=== PATIENT | female | born 1950 | race Caucasian/White ===

== ENCOUNTER 2022-01-12 07:41 | Day surgery (SDC) | payer MEDICARE, OTHER ==
[2022-01-12] MEDS ORDERED: Propofol 200 MG/20 ML SDV ONE ×4 (08:29→10:54)
[2022-01-12] MEDS ORDERED: fentaNYL 50 MCG/ML SDV ONE (08:29)
[2022-01-12] MEDS ORDERED: Lactated Ringers 1,000 ML IV SCH (09:00)
== END 2022-01-12 12:10 | disposition home or self-care (01) ==
LOC: JP.SDS 07:41
PROVIDERS: ATTEND Student in an Organized Health Care Education/Training Program
DX: Z12.11 Encounter for screening for malignant neoplasm of colon (principal); D12.7 Benign neoplasm of rectosigmoid junction; D12.0 Benign neoplasm of cecum; D12.5 Benign neoplasm of sigmoid colon; D12.3 Benign neoplasm of transverse colon; K57.30 Diverticulosis of large intestine without perforation or abscess without bleeding; I10 Essential (primary) hypertension; Z88.6 Allergy status to analgesic agent; Z88.5 Allergy status to narcotic agent; Z88.1 Allergy status to other antibiotic agents; Z79.899 Other long term (current) drug therapy; Z87.891 Personal history of nicotine dependence
CPT/HCPCS: 88305; J2704; J3010; J7120

== ENCOUNTER 2023-01-04 07:39 | Day surgery (SDC) | payer MEDICARE, OTHER ==
[~2023-01-04 07:39] MED LIST: Propofol 200 MG/20 ML SDV ONE; fentaNYL 100 MCG/2 ML SDV ONE
[2023-01-04] MEDS ORDERED: Lactated Ringers 1,000 ML IV SCH (08:00)
== END 2023-01-04 11:30 | disposition home or self-care (01) ==
LOC: JP.SDS 07:39
PROVIDERS: ATTEND Family Medicine
DX: Z12.11 Encounter for screening for malignant neoplasm of colon (principal); I25.10 Atherosclerotic heart disease of native coronary artery without angina pectoris; J44.9 Chronic obstructive pulmonary disease, unspecified; Z86.010 Personal history of colon polyps; Z88.8 Allergy status to other drugs, medicaments and biological substances; Z88.1 Allergy status to other antibiotic agents; Z88.5 Allergy status to narcotic agent; Z79.899 Other long term (current) drug therapy
CPT/HCPCS: J2704; J3010; J7120

== ENCOUNTER 2023-01-12 07:56 | Day surgery (SDC) | payer MEDICARE, OTHER ==
[2023-01-12] MEDS ORDERED: Lactated Ringers 1,000 ML IV SCH (09:00)
[2023-01-12] MEDS ORDERED: fentaNYL 50 MCG/ML SDV ONE (09:07)
[2023-01-12] MEDS ORDERED: Propofol 200 MG/20 ML SDV ONE ×2 (09:07→10:07)
[2023-01-12] MEDS ORDERED: Midazolam 1 MG/ML 2 ML SDV ONE (09:07)
== END 2023-01-12 11:20 | disposition home or self-care (01) ==
LOC: JP.SDS 07:56
PROVIDERS: ATTEND Student in an Organized Health Care Education/Training Program
DX: D12.3 Benign neoplasm of transverse colon (principal); D12.5 Benign neoplasm of sigmoid colon; K57.30 Diverticulosis of large intestine without perforation or abscess without bleeding; I10 Essential (primary) hypertension; M48.00 Spinal stenosis, site unspecified; E78.5 Hyperlipidemia, unspecified; I25.10 Atherosclerotic heart disease of native coronary artery without angina pectoris; Z95.5 Presence of coronary angioplasty implant and graft; Z88.5 Allergy status to narcotic agent; Z88.1 Allergy status to other antibiotic agents; Z88.8 Allergy status to other drugs, medicaments and biological substances
CPT/HCPCS: 45380; 88305; J2250; J2704; J3010; J7120